=== PATIENT | female | born 1965 | race African-American/Black ===

== ENCOUNTER 2021-06-20 00:49 | Emergency (ER) | payer MEDICARE ==
[~2021-06-20] VITALS: Ht 170.2 cm; Wt 104.0 kg
[2021-06-20] MEDS ORDERED: DIGO125T84 PO (01:05)
[2021-06-20] MEDS ORDERED: IBUP-2071 PO (01:05)
[2021-06-20] MEDS ORDERED: QUET25TA PO (01:05)
[2021-06-20] MEDS ORDERED: CARV6 PO (01:05)
[2021-06-20] MEDS ORDERED: DULO30CA89 PO (01:05)
[2021-06-20] MEDS ORDERED: HYDR-4527 PO (01:05)
[2021-06-20] MEDS ORDERED: PRED-554 PO (01:05)
[2021-06-20] MEDS ORDERED: ZIPR80CA2 PO (01:05)
[2021-06-20] MEDS ORDERED: FURO40 PO (01:05)
[2021-06-20] MEDS ORDERED: OMEP20 PO (01:05)
[2021-06-20] MEDS ORDERED: GABA-1181 PO (01:05)
[2021-06-20] MEDS ORDERED: RAMI10 PO (01:05)
[2021-06-20 02:09] LABS: COVID AG,FIA SOURCE NASAL SWAB
[2021-06-20 02:13] LABS: HEMATOCRIT 37.4 % (36-46); HEMOGLOBIN 12.1 g/dL (12.0-16.0); MEAN CORPUSCULAR HGB CONC 32.3 G/dL (31.0-37.0); MEAN CORPUSCULAR VOLUME 80 fL (80-100); PLATELET COUNT (AUTO) 299 K/uL (150-450); RED BLOOD CELL COUNT(AUTO) 4.65 MIL/uL (4.00-5.20); RED CELL DISTRIBUTION WIDTH 14.7 % (11.5-14.5)
[2021-06-20 02:19] LABS: ANION GAP 9 mmol/L (8-16); CALCIUM, TOTAL 8.4 mg/dL (8.8-10.5); CARBON DIOXIDE 31 mmol/L (22-29); CHLORIDE 104 mmol/L (98-107); CREATININE 0.86 mg/dL (0.60-1.30); GLOMERULAR FILTR. RATE CALC > 60 mL/min (>60); GLUCOSE,RANDOM 117 mg/dL (70-110); POTASSIUM 3.2 mmol/L (3.5-5.1); SODIUM SERUM 144 mmol/L (136-145); UREA NITROGEN, BLOOD 14 mg/dL (7-18)
[2021-06-20 02:25] LABS: ALANINE AMINOTRANSFERASE 19 U/L (12-78); ALBUMIN 3.1 g/dL (3.4-5.0); ALKALINE PHOSPHATASE 110 U/L (46-116); ASPARTATE AMINOTRANSFERASE 12 U/L (15-37); BILIRUBIN,TOTAL 0.2 mg/dL (0.1-1.0); CREATINE KINASE, TOTAL ONLY 50 U/L (26-192); TOTAL PROTEIN, SERUM 6.8 g/dL (6.4-8.2)
[2021-06-20 02:45] LABS: BAND NEUTROPHILS % (MANUAL) 0 % (0-5)
[2021-06-20 02:46] LABS: B-TYPE NATRIURETIC PEPTIDE 18 pg/mL (0-100)
[2021-06-20 03:13] LABS: LYMPHOCYTES % (MANUAL) 43 % (22-44); MONOCYTES % (MANUAL) 8 % (2-9); PLATELET MORPHOLOGY COMMENT GIANT PLTS PRESENT; REACTIVE LYMPHOCYTES 17 % (0-0); SEGMENTED NEUTROPHILS % 32 % (40-70)
[2021-06-20] MEDS ORDERED: POTASSIUM CHLORIDE 20 MEQ ER TABLET PO ONE (03:15)
[2021-06-20 05:30] VITALS: BP 119/71
== END 2021-06-20 05:35 | disposition home or self-care (01) ==
LOC: EMS 00:51
DX: R06.02 Shortness of breath (principal); I50.9 Heart failure, unspecified; F41.9 Anxiety disorder, unspecified; F32.9 Major depressive disorder, single episode, unspecified; F17.210 Nicotine dependence, cigarettes, uncomplicated; Z79.899 Other long term (current) drug therapy; Z20.822 Contact with and (suspected) exposure to COVID-19
CPT/HCPCS: 71045; 80053; 82550; 83880; 84484; 85025; 93005; 99285; 36415-L1; 36415-TC